=== PATIENT | female | born 1980 ===

== ENCOUNTER 2021-09-03 20:46 | Emergency (ER) | payer OTHER ==
[~2021-09-03] VITALS: Ht 160 cm; Wt 90.9 kg
[2021-09-03 21:01] VITALS: BP 148/95
== END 2021-09-04 04:11 | disposition home or self-care (01) ==
LOC: ER 20:47
DX: M25.561 Pain in right knee (principal); Z53.21 Procedure and treatment not carried out due to patient leaving prior to being seen by health care provider
CPT/HCPCS: 73564